=== PATIENT | male | born 1955 | race Native Hawaiian/Other Pacific Islander ===

== ENCOUNTER 2017-08-06 14:01 | Outpatient (CLI) | payer BC | END 2017-08-06 19:06 | disposition home or self-care (01) | LOC: RAD 14:01 | DX: M25.562 Pain in left knee (principal) ==

== ENCOUNTER 2018-05-29 10:19 | Outpatient (CLI) | payer BC | END 2018-05-29 22:38 | disposition home or self-care (01) | LOC: LABW 10:19 | DX: E53.8 Deficiency of other specified B group vitamins (principal); R79.89 Other specified abnormal findings of blood chemistry | CPT/HCPCS: 36415; 82607; 84403 ==

== ENCOUNTER 2020-07-18 03:02 | Emergency (ER) | payer OTHER ==
[~2020-07-18] VITALS: Ht 182.9 cm; Wt 124.3 kg
[2020-07-18 03:10] VITALS: BP 133/80; TEMP 97.7
== END 2020-07-18 07:25 | disposition home or self-care (01) ==
LOC: ED 03:02
DX: T78.49XA Other allergy, initial encounter (principal)
CPT/HCPCS: 96372; 99283; J1200; J2930

== ENCOUNTER 2021-06-02 13:47 | Outpatient (CLI) | payer OTHER, MEDICARE | END 2021-06-02 21:07 | disposition home or self-care (01) | LOC: RAD 13:47 | PROVIDERS: ATTEND Physician Assistant | DX: M79.671 Pain in right foot (principal) ==

== ENCOUNTER 2022-03-16 10:26 | Outpatient (CLI) | payer OTHER, MEDICARE | END 2022-03-16 19:29 | disposition home or self-care (01) | LOC: RAD 10:26 | PROVIDERS: ATTEND Physician Assistant | DX: M79.671 Pain in right foot (principal) ==

== ENCOUNTER 2022-05-01 11:29 | Outpatient (CLI) | payer OTHER, MEDICARE | END 2022-05-01 18:48 | disposition home or self-care (01) | LOC: RAD 11:29 | PROVIDERS: ATTEND Physician Assistant | DX: M54.59 Other low back pain (principal) ==

== ENCOUNTER 2022-05-29 09:55 | Outpatient (CLI) | payer OTHER, MEDICARE | END 2022-05-29 18:49 | disposition home or self-care (01) | LOC: RAD 09:55 | PROVIDERS: ATTEND Physician Assistant | DX: M25.572 Pain in left ankle and joints of left foot (principal) ==